=== PATIENT | female | born 1990 | race Caucasian/White ===

== ENCOUNTER 2024-12-27 16:25 | Emergency (ER) | payer BC, SELFPAY ==
[2024-12-27 16:50] VITALS: BP 150/100
--- NOTE | 2024-12-27 16:52 | ED.MUSCINJ ---
HPI-Injury
<Gordon Victoria PA-C - Last Filed: 12/27/24 16:53>
General
Chief Complaint: Musculo-Skeletal Complaint
Time Seen by Provider: 12/27/24 17:24
<Camacho Cirilo eBy DO - Last Filed: 12/27/24 17:40>
History of Present Illness-Injury
Initial Injury comments:
TIME OF INITIAL ENCOUNTER: 5:30 PM
HPI: Patient presents with 4 days of nontraumatic left knee pain. The pain is diffuse in nature and feels that she is having trouble getting around. She feels a fluid wave in her knee when she is driving. She has an appointment to see a sports
medicine clinician later this week. She ordered a brace online but this did not come yet.
EXAM:
GENERAL: Well appearing in no distress
HEENT: Moist oral mucosa
NEUROLOGIC: Excellent strength all extremities, no obvious coordination deficits
PSYCHIATRIC: Appropriate mental status, normal insight and judgement
EXTREMITIES: Mild joint effusion at the left knee, there is at least borderline anterior drawer testing, negative Danny test, there is moderate to severe tenderness at the quadriceps more than the patellar tendon
SKIN: No rash, no lesions
NUMBER AND COMPLEXITY OF PROBLEMS ADDRESSED AT THE ENCOUNTER
� Chronic conditions affecting care: Ovarian cysts
� Acute Exacerbation and/or Progression of Chronic Illness: This is an acute problem
� Differential Diagnosis includes: Tendinosis, ACL injury, nonspecific joint effusion, osteoarthritis
AMOUNT AND/OR COMPLEXITY OF DATA TO BE REVIEWED AND ANALYZED
� I performed an independent evaluation of and my interpretation is:
EKG:
CT:
X-rays: X-ray of the left knee is unremarkable
Laboratory Studies:
Other:
� Review of other/old records: No old records available for review
� Clinical information was obtained by an independent historian: None needed
� Prescriptions/Medications Considered but not given:
� Further testing considered but not performed:
RISK OF COMPLICATIONS AND/OR MORBIDITY OR MORTALITY OF PATIENT MANAGEMENT
� Social determinants of health affecting care: Lives at home
� Discussion with other providers:
� Escalation of care including admission/observation vs risk of discharge considered: Give Toradol for pain. Also given knee immobilizer. To follow-up with orthopedics. She is already taking Aleve.
ANY OTHER UPDATES:
ED Provider Triage
<Gordon Victoria PA-C - Last Filed: 12/27/24 16:53>
-
Patient seen by provider in Triage?: Seen in Triage
Attestation: A medical screening examination has been initiated by a qualified medical provider. Based on the assessment performed at this time, it has been determined that an emergent medical condition may exist and the patient has been informed
that further medical evaluation and possible additional diagnostic testing may be needed.
HPI: 34-year-old female otherwise healthy presents with intermittent left knee discomfort worsening and today it felt like her kneecap was dislocated when she woke up. She also feels tension inside her knee. No associated fever. No known injury.
Looks nontoxic on exam no deformities noted x-rays of the left knee pending
GENERAL: Alert , in no apparent distress
EYE: No visual abnormalities.
NECK: Trachea midline
ENT: No visible abnormalities.
LUNGS: No acute respiratory distress
NEUROLOGICAL: Alert and oriented
SKIN: Skin intact. No visible changes.
MUSCULOSKELETAL: Moving extremities normally
PSYCH: Normal and appropriate interaction.
This is a medical evaluation conducted in person to initiate diagnostic evaluation and provide initial therapeutics. Please see further documentation by the treating clinician.
Phy Exam
<Camacho Bey DO - Last Filed: 12/27/24 17:40>
Physical Exam
Physical Exam:
See HPI
Injury Course
<Gordon Victoria PA-C - Last Filed: 12/27/24 16:53>
Orders/Labs/Results
Orders:
Orders
12/27/24 16:29
Knee, Left 4 or More Views [CR Knee - Left 4 Or More View*] Urgent
Comment:
Reason For Exam: pain
12/27/24 17:35
Knee Immobilizer Left-Treatmen ONCE
Ketorolac [Toradol] 30 mg IM NOW STA
<Camacho Bey, DO - Last Filed: 12/27/24 17:40>
Orders/Labs/Results
Orders:
Orders
12/27/24 16:29
Knee, Left 4 or More Views [CR Knee - Left 4 Or More View*] Urgent
Comment:
Reason For Exam: pain
12/27/24 17:35
Knee Immobilizer Left-Treatmen ONCE
Ketorolac [Toradol] 30 mg IM NOW STA
<Camacho Bey, DO - Last Filed: 12/27/24 17:40>
*Critical Care Note
Total Time (30-74mins, 75-104mins- exclusive of procedures): Not Applicable
ED Attending Note
<Gordon Victoria PA-C - Last Filed: 12/27/24 16:53>
-
Portions of this chart may have been created with voice recognition software.� Occasional wrong word or��sound alike� substitutions may have occurred due to the inherent limitations of voice recognition software.
Discharge Plan
Departure
Patient Disposition: Home (Routine Discharge)
Date of Disposition: 12/27/24
Time of Disposition: 17:35
Patient with high blood pressure during this ER visit?: Yes
Discharge Problem:
Knee pain
Instructions: Knee Immobilizer (DC), Knee Pain (DC), BLOOD PRESSURE
Referrals:
Josh Gatica MD [Active] - Follow up in 2-3 days
Activity Restrictions/Additional Instructions:
The cause of your symptoms is unclear. You seem to have tenderness at both the quadriceps tendon and the patellar tendons. You also had some discomfort when I did ACL testing but not medial meniscal testing. The x-ray was normal. We gave you a
shot of Toradol. Continue Aleve. I have given you the contact information for local orthopedist, Dr. Gatica.
Interventions
Interventions:
*Risk Screen - Suicide Last Done: 12/27/24 16:50
*General Assessment Last Done: 12/27/24 16:50
*Neglect/Abuse Screening Last Done: 12/27/24 16:50
*ED COVID-19 Vaccine History Last Done: 12/27/24 16:50
Discharge Date and Time
Print Language: WALLISIAN
[2024-12-27] MEDS: TORADOL 30 MG IM (17:52)
[2024-12-27 18:02] VITALS: BP 160/89
== END 2024-12-27 18:20 | disposition home or self-care (01) ==
LOC: EMR 16:25
PROVIDERS: EMERGENCY PHYSICIAN Emergency Medicine
DX: M25.562 Pain in left knee (principal)
CPT/HCPCS: 29505; 96372; 99284; 73564